=== PATIENT | male | born 1940 | race Hispanic/Latino ===

== ENCOUNTER 2016-07-24 18:53 | Emergency (ER) | payer OTHER ==
[~2016-07-24] VITALS: Ht 157.5 cm; Wt 65.9 kg
[2016-07-24] MEDS ORDERED: TEGRETOL200 MG PO (18:58)
[2016-07-24] MEDS ORDERED: HYDRALAZINE25 MG PO (18:59)
[2016-07-24] MEDS ORDERED: TENORMIN25 M1 PO (18:59)
[2016-07-24] MEDS ORDERED: KEFLEX500 M1 PO (19:00)
[2016-07-24] MEDS ORDERED: CLONIDINE0.1 MG PO (19:01)
[2016-07-24] MEDS ORDERED: PHOSLO667 M1 PO (19:02)
[2016-07-24] MEDS ORDERED: BAYER ASPIRIN E81 MG PO (19:03)
[2016-07-24] MEDS ORDERED: GLUCOTROL10 MG PO (19:03)
[2016-07-24] MEDS ORDERED: BICITRA30 ML/UDC PO (19:04)
[2016-07-24 19:32] LABS: HEMATOCRIT 29.4 % (39.0-50.0); HEMOGLOBIN 9.3 g/dl (14.0-18.0); IMMATURE GRANULOCYTES 0.4 % (0.0-1.0); MEAN CELL VOLUME 92.7 fL CALC (80.0-100.0); MEAN CORPUSCULAR HGB 29.3 pG CALC (26.0-32.0); MEAN CORPUSCULAR HGB CONC 31.6 g/L CALC (32.0-36.0); NEUT# 12.66 thou/uL (1.82-7.42); RED BLOOD COUNT 3.17 mill/uL (4.70-6.10); RED CELL DISTRI WIDTH 14.6 % (11.5-15.5)
[2016-07-24 19:44] LABS: ALBUMIN 3.5 g/dL (3.2-5.0); BILIRUBIN, TOTAL 0.2 mg/dL (0.0-1.4); CALCIUM 8.4 mg/dL (8.4-10.2); CREATININE 3.9 mg/dL (0.7-1.3); POTASSIUM 4.4 mmol/l (3.5-5.1); TOTAL PROTEIN 6.7 g/dL (6.3-8.2)
[2016-07-24 20:40] LABS: URINE BILIRUBIN - DIPSTICK NEGATIVE (NEGATIVE); URINE BLOOD DIPSTICK TRACE-INTACT (NEGATIVE); URINE COLOR YELLOW; URINE GLUCOSE - DIPSTICK 250 mg/dL (NEGATIVE); URINE KETONE NEGATIVE (NEGATIVE); URINE NITRITE - DIPSTICK NEGATIVE (Negative); URINE PROTEIN - DIPSTICK 100 mg/dL (NEG-TRACE); URINE SPECIFIC GRAVITY 1.015; URINE UROBILINOGEN - DIPSTICK 0.2 E.U./dL (0.2)
[2016-07-24 20:42] LABS: URINE CLARITY SLIGHT CLOUDY; URINE LEUK ESTERASE MODERATE (NEGATIVE)
[2016-07-24 20:59] LABS: URINE WBC 50-100 WBC/hpf (0-5)
[2016-07-24] MEDS ORDERED: BACTRIM DS1 TAB PO (21:34)
[2016-07-24 21:48] VITALS: BP 161/81
== END 2016-07-24 22:10 | DRG 683 ==
LOC: ED 18:53
PROVIDERS: Emergency Medicine
DX: I12.9 Hypertensive chronic kidney disease with stage 1 through stage 4 chronic kidney disease, or unspecified chronic kidney disease (principal); N39.0 Urinary tract infection, site not specified; E11.22 Type 2 diabetes mellitus with diabetic chronic kidney disease; E11.40 Type 2 diabetes mellitus with diabetic neuropathy, unspecified; N18.9 Chronic kidney disease, unspecified; E78.5 Hyperlipidemia, unspecified; E11.319 Type 2 diabetes mellitus with unspecified diabetic retinopathy without macular edema; H35.30 Unspecified macular degeneration; N40.0 Benign prostatic hyperplasia without lower urinary tract symptoms